=== PATIENT | male | born 1985 | race Asian ===

== ENCOUNTER 2018-07-24 18:40 | Emergency (ER) | payer MEDICAID ==
[~2018-07-24] VITALS: Ht 170.2 cm; Wt 79.5 kg
[2018-07-24 18:42] VITALS: BP 139/87
[2018-07-24] MEDS ORDERED: IBUPROFEN 600 MG TABLET PO ONE (20:00)
== END 2018-07-24 20:44 | disposition home or self-care (01) ==
LOC: EMS 18:41
DX: S93.401A Sprain of unspecified ligament of right ankle, initial encounter (principal); Z88.0 Allergy status to penicillin; X50.1XXA Overexertion from prolonged static or awkward postures, initial encounter; Y93.89 Activity, other specified; Y92.89 Other specified places as the place of occurrence of the external cause; Y99.8 Other external cause status

== ENCOUNTER 2025-05-21 15:10 | Emergency (ER) | payer MEDICAID, OTHER ==
[~2025-05-21] VITALS: Ht 170.2 cm; Wt 77.3 kg
[2025-05-21 15:21] VITALS: BP 134/84; PULSE 89; RESP 18; TEMP 98.2; O2SAT 98
[2025-05-21] MEDS: KETOROLAC TROMETHAMINE 30 MG/ML VIAL IM ONE (16:19)
== END 2025-05-21 16:46 | disposition home or self-care (01) ==
LOC: EMS 15:10
DX: S46.002A Unspecified injury of muscle(s) and tendon(s) of the rotator cuff of left shoulder, initial encounter (principal); Z88.0 Allergy status to penicillin; X58.XXXA Exposure to other specified factors, initial encounter; Y93.89 Activity, other specified; Y92.89 Other specified places as the place of occurrence of the external cause; Y99.8 Other external cause status
CPT/HCPCS: 99283; 73030; 96372; J1885